=== PATIENT | female | born 1975 | race Caucasian/White ===

== ENCOUNTER 2017-06-29 22:20 | Emergency (ER) | payer MEDICAID ==
[2017-06-29 22:58] LABS: URINE BILIRUBIN NEGATIVE (NEGATIVE); URINE BLOOD TRACE (NEGATIVE); URINE GLUCOSE (UA) NEGATIVE (NEGATIVE); URINE KETONE NEGATIVE (NEGATIVE); URINE PROTEIN NEGATIVE (NEGATIVE); URINE UROBILINOGEN 0.2 E.U./dL (0.2 - 1.0)
[2017-06-29 23:03] LABS: URINE COLOR YELLOW
[2017-06-29 23:04] LABS: % BASOPHILS 0.5 % (0.0-2.0); % LYMPHOCYTES 22.2 % (20.0-50.0); % MONOCYTES 7.1 % (2.0-10.0); % NEUTROPHILS 69.2 % (40.0-80.0); HEMATOCRIT 38.4 % (35.0-45.0); HEMOGLOBIN 12.5 gm/dL (11.7-15.5); MEAN CELL VOLUME 80.6 fl (81-100); MEAN CORPUSCULAR HEMOGLOBIN 26.3 pg (27.0-31.0); MEAN CORPUSCULAR HGB CONC 32.6 pg (28.0-36.0); MEAN PLATELET VOLUME 9.7 fl; PLATELET COUNT 239 Th/cmm (150-400); RED BLOOD COUNT 4.76 Mil/cmm (3.80-5.10); RED CELL DISTRIBUTION WIDTH 12.6 % (11.5-20.0); WHITE BLOOD COUNT 10.2 Th/cmm (4.8-10.8)
[2017-06-29 23:05] LABS: URINE BACTERIA FEW /hpf (NONE SEEN); URINE EPITHELIAL CELLS MODERATE /lpf (FEW); URINE RBC 0-2 /hpf (0-5); URINE WBC 0-2 /hpf (0-5)
--- NOTE | 2017-06-29 23:12 | ED Physician Chart ---
ED Chief Complaint/HPI - Patient Information Date Seen:: 06/29/17 Time Seen:: 22:30 Chief Complaint:: LEFT ARM PAIN History of Present Illness:: THIS IS A 42 YO FEMALE WITH LEFT ARM PAIN FOR SEVERAL DAYS AND TOOK SOME HYPERTENSIVE MEDICATION WHICH WAS NOT HERS. SHE ALSO STATES THAT SHE VOMITED. SHE DENIES CHEST PAIN, HYPERTENSION AND HEART DISEASE. SHE IS ALSO CONCERNED ABOUT HER NECK PAIN. SHE DENIES PREVIOUS ILLNESSES OR HOSPITALIZATIONS. Allergies:: Allergies Allergy/AdvReac Type Severity Reaction Status Date / Time No Known Allergies Allergy Verified 06/29/17 23:09 Historian:: Patient, Family Member (MOTHER) Review:: Nurse's Note Reviewed ED Review of Systems - Review of Systems General/Constitutional: No fever, No chills, No weight loss, No weakness, No diaphoresis, No edema, No loss of appetite Skin: No skin lesions, No rash, No bruising Head: No headache, No light-headedness Eyes: No loss of vision, No pain, No diplopia ENT: No earache, No nasal drainage, No sore throat, No tinnitus Neck: No neck pain, No swelling, No thyromegaly, No stiffness, No mass noted Cardio Vascular: No chest pain, No palpitations, No PND, No orthopnea, No edema Pulmonary: No SOB, No cough, No sputum, No wheezing GI: No nausea, No vomiting, No diarrhea, No pain, No melena, No hematochezia, No constipation, No hematemesis G/U: No dysuria, No frequency, No hematuria Musculoskeletal: Bone or joint pain (LEFT ARM PAIN), No back pain, No muscle pain Endocrine: No polyuria, No polydipsia Psychiatric: No prior psych history, No depression, No anxiety, No suicidal ideation Hematopoietic: No bruising, No lymphadenopathy Allergic/Immuno: No urticaria, No angioedema Neurological: No syncope, No focal symptoms, No weakness, No paresthesia, No headache, No seizure, No dizziness, No confusion, No vertigo ED Past Medical History - Past Medical History Obtainable: Yes Past Medical History: No significant medical hx Family History: None Social History: Non Smoker, No Alcohol, No Drug Use Surgical History: None Psychiatricy History: None Medication: Reviewed Family Medical History - Family Member Mother History Unknown: Yes Ethnicity: Living Status: Still Living ED Physical Exam - Physical Examination General/Constitutional: Awake, Well-developed, well-nourished, Alert, No distress, GCS 15, Non-toxic appearing, Ambulatory Head: Atraumatic Eyes: Lids, conjuctiva normal, PERRL, EOMI Skin: Nl inspection, No rash, No skin lesions, No ecchymosis, Well hydrated, No lymphadenopathy ENMT: External ears, nose nl, Nasal exam nl, Lips, teeth, gums nl Neck: Nontender, Full ROM w/o pain, No JVD, No nuchal rigidity, No bruit, No mass, No stridor Respiratory: Nl effort/Exclusion, Clear to Auscultation, No Wheeze/Rhonchi/Rales Cardio Vascular: RRR, No murmur, gallop, rubs, NL S1 S2 GI: No tenderness/rebounding/guarding, No organomegaly, No hernia, Normal BS's, Nondistended, No mass/bruits, No McBurney tenderness : No CVA tenderness Extremities: No tenderness or effusion, Full ROM, normal strength in all extremities, No edema, Normal digits & nails Neuro/Psych: Alert/oriented, DTR's symmetric, Normal sensory exam, Normal motor strength, Judgement/insight normal, Mood normal, Normal gait, No focal deficits Misc: normal gait, Normal back, No paraspinal tenderness ED Labs/Radiology/EKG Results - Lab Results Results: Laboratory Tests 06/29/17 06/29/17 22:40 22:40 Urine Source CLEAN C Urine Color YELLOW Urine Clarity HAZY Urine pH 6.0 Ur Specific [place] 1.025 Urine Protein NEGATIVE Urine Glucose (UA) NEGATIVE Urine Ketones NEGATIVE Urine Blood TRACE Urine Nitrate NEGATIVE Urine Bilirubin NEGATIVE Urine Urobilinogen 0.2 Ur Leukocyte Esterase NEGATIVE Urine RBC 0-2 Urine WBC 0-2 Ur Epithelial Cells MODERATE Urine Bacteria FEW Urine Test NEGATIVE - Radiology Results Results: CHEST X-RAY = NAD CERVICAL SPINE CT SCAN = ENLARGED SELLA TURCIA - EKG Interpretations EKG Time:: 22:50 Rate & Rhythm: RATE=56 BRADYCARDIA Duncan: RIGHT AXIS ED Assessment - Assessment General Assessment: LEFT ARM PAIN ED Septic Shock - . Is Septic Shock (SBP<90, OR Lactate>4 mmol\L) present?: No ED Reassessment (Disposition) - Reassessment Reassessment Condition:: Unchanged, Improved - Diagnosis Diagnosis:: LEFT ARM PAIN ENLARGED SELLA TURSICA - Aftercare/Follow up Instructions Aftercare/Follow-Up Instructions:: Counseled pt regarding lab results/diagnosis & need follow up, Refer to Discharge Instructions, Counseled pt & family regarding lab results/diagnosis & need follow up - Patient Disposition Discharge/Transfer:: Home Condition at Disposition:: Improved ED Discharge Plan - Patient Disposition Admit/Discharge/Transfer: PT DISCHARGED HOME Condition at Disposition: Improved
[2017-06-29 23:18] LABS: INR 0.95 (0.5-1.4); PROTHROMBIN TIME (TEST) 9.9 SECONDS (9.5-11.5)
[2017-06-29 23:22] LABS: ALB/GLOB RATIO 1.4 (1.0-1.8); ALKALINE PHOSPHATASE 68 U/L (34-104); BILIRUBIN,TOTAL 0.3 mg/dL (0.3-1.0); BUN - UREA NITROGEN 14 mg/dL (7-25); CALCIUM SERUM 9.7 mg/dL (8.6-10.3); CARBON DIOXIDE 24.2 mEq/L (21.0-31.0); CHLORIDE 102 mEq/L (98-107); CREATININE - SERUM 0.7 mg/dL (0.6-1.2); GLUCOSE 117 mg/dL (70-105); POTASSIUM SERUM 3.2 mEq/L (3.5-5.1); SGOT 16 U/L (13-39); SGPT/ALT 14 U/L (7-52); SODIUM SERUM 133 mEq/L (136-145)
[2017-06-29 23:23] LABS: CHOLESTEROL 210 mg/dL (<200); TRIGLYCERIDES 124 mg/dL (<150)
--- NOTE | 2017-06-30 08:08 | Diagnostic Imaging Report ---
Portable chest x-ray Time: 2305 History: Chest pain Allowing for portable technique the heart size is normal. No focal pulmonary parenchymal processes. No hilar or mediastinal abnormalities. Impression: No acute abnormalities.
--- NOTE | 2017-06-30 08:20 | Diagnostic Imaging Report ---
Exam: CT examination cervical spine. HISTORY: Neck pain Total DLP equals 484 CTDI equals 24.5 Findings: Multiple contiguous thin section of the cervical spine were obtained from the base of skull to the thoracic outlet without the administration of contrast material. No prior studies available comparison. Coronal and sagittal reconstruction technique was utilized. The study demonstrates no evidence of fracture dislocation. No prevertebral soft tissue swelling is noted. The posterior elements are intact. There is no evidence for spinal stenosis. Incidentally noted nonspecific prominence of the sella turcica. Clinical correlation recommended. MRI examination might helpful. Mild mucosal thickening in sphenoid sinus appreciated. IMPRESSION: Normal examination of cervical spine
== END 2017-06-30 00:30 | disposition home or self-care (01) ==
LOC: ER 22:20
DX: M79.602 Pain in left arm (principal); E23.6 Other disorders of pituitary gland
CPT/HCPCS: 36415-UA; 71010-TC; 72125-TC; 80053-TC; 80061-TC; 81001-TC; 81025-TC; 84443-TC; 84484-TC; 85025-TC; 85610-TC; 85730-TC; 86592-TC; 93005